=== PATIENT | male | born 1980 | race Caucasian/White ===

== ENCOUNTER 2019-10-12 12:13 | Emergency (ER) | payer MEDICARE ==
[~2019-10-12] VITALS: Ht 190.5 cm; Wt 102.1 kg
[2019-10-12] MEDS ORDERED: CRUTCH4 XX (14:41)
[2019-10-12] MEDS ORDERED: Norco 5-325 Ta1 EACH PO (14:42)
== END 2019-10-12 15:05 | disposition home or self-care (01) ==
LOC: ER 12:13
DX: S86.912A Strain of unspecified muscle(s) and tendon(s) at lower leg level, left leg, initial encounter (principal); X58.XXXA Exposure to other specified factors, initial encounter
CPT/HCPCS: 29505; 73562-LT; 99283-25; A9270-GY

== ENCOUNTER → 2021-02-20 | Outpatient (CLI) | payer MEDICARE ==
[~2021-02-20] MED LIST: CLON.3 PO; CRUTCH4 XX; LISINOPRIL-HCT1 EAC1 PO; Norco 5-325 Ta1 EACH PO; OMEP20ER PO
[2021-02-20 17:51] LABS: BASOPHILS ABSOLUTE AUTO 0.03 K/mm3 (0.00-0.23); BASOPHILS PERCENT AUTO 0 % (0-2); EOSINOPHILS ABSOLUTE AUTO 0.07 K/mm3 (0.00-0.68); EOSINOPHILS PERCENT AUTO 1 % (0-6); Hemoglobin 15.3 g/dL (13.5-17.5); IMMATURE GRAN ABSOLUTE AUTO 0.03 K/mm3 (0.00-0.10); IMMATURE GRAN PERCENT AUTO 0 % (0-1); LYMPHOCYTES ABSOLUTE AUTO 1.72 K/mm3 (0.84-5.20); LYMPHOCYTES PERCENT AUTO 15 % (21-46); MONOCYTES ABSOLUTE AUTO 1.05 K/mm3 (0.16-1.47); MONOCYTES PERCENT AUTO 9 % (4-13); Mean Corpuscular HGB 28.5 pg (26.0-34.0); Mean Corpuscular HGB Conc 32.6 g/dL (31.5-36.5); Mean Corpuscular Volume 88 fL (80-100); Mean Platelet Volume 10.5 fL (9.1-12.4); NEUTROPHILS ABSOLUTE AUTO 8.26 K/mm3 (1.96-9.15); NEUTROPHILS PERCENT AUTO 74 % (41-73); Platelet Count 332 K/mm3 (150-400); RDW Coefficient Variation 14.6 % (11.7-14.2); Red Blood Cell Count 5.36 M/mm3 (4.30-5.90); White Blood Cell Count 11.16 K/mm3 (4.00-11.30)
[2021-02-20 18:11] LABS: Bilirubin, Total 0.7 mg/dL (0.1-1.0); Bun/Creatinine Ratio 14.3 (12.0-20.0); Calcium, Blood 12.4 mg/dL (8.5-10.1); Creatinine, Blood 1.82 mg/dL (0.60-1.20); Globulin, Blood 4.2 g/dL (2.2-4.0); Potassium, Blood 3.5 mmol/L (3.5-5.5); Total Protein, Blood 8.2 g/dL (6.4-8.2)
== END | disposition home or self-care (01) ==
LOC: LAB 16:55 → LAB SHORT 16:55
PROVIDERS: Physician Assistant
DX: R10.9 Unspecified abdominal pain (principal)
CPT/HCPCS: 80053; 85025

== ENCOUNTER 2021-07-12 20:46 | Inpatient (IN) | payer MEDICARE ==
[~2021-07-12] VITALS: Ht 190.5 cm; Wt 112.4 kg
[2021-07-12] MEDS ORDERED: SILDENAFIL CITR20 MG PO (21:44)
[2021-07-12] MEDS ORDERED: Cymbalta20 MG PO (21:44)
[2021-07-12 21:58] LABS: BASOPHILS ABSOLUTE AUTO 0.03 K/mm3 (0.00-0.23); BASOPHILS PERCENT AUTO 0 % (0-2); EOSINOPHILS PERCENT AUTO 0 % (0-6); Hematocrit 45.4 % (37.0-53.0); Hemoglobin 15.4 g/dL (13.5-17.5); IMMATURE GRAN ABSOLUTE AUTO 0.17 K/mm3 (0.00-0.10); IMMATURE GRAN PERCENT AUTO 1 % (0-1); LYMPHOCYTES ABSOLUTE AUTO 1.09 K/mm3 (0.84-5.20); LYMPHOCYTES PERCENT AUTO 6 % (21-46); MONOCYTES ABSOLUTE AUTO 1.42 K/mm3 (0.16-1.47); MONOCYTES PERCENT AUTO 8 % (4-13); Mean Corpuscular HGB 29.3 pg (26.0-34.0); Mean Corpuscular HGB Conc 33.9 g/dL (31.5-36.5); Mean Corpuscular Volume 87 fL (80-100); Mean Platelet Volume 10.5 fL (9.1-12.4); NEUTROPHILS ABSOLUTE AUTO 15.24 K/mm3 (1.96-9.15); NEUTROPHILS PERCENT AUTO 85 % (41-73); Platelet Count 321 K/mm3 (150-400); RDW Coefficient Variation 13.8 % (11.7-14.2); RDW Standard Deviation 43.5 fL (35.1-46.3); Red Blood Cell Count 5.25 M/mm3 (4.30-5.90); White Blood Cell Count 17.95 K/mm3 (4.00-11.30)
[2021-07-12 22:22] LABS: Troponin I 0.074 ng/mL (0.000-0.040)
[2021-07-12 22:34] LABS: Albumin, Blood 4.1 g/dL (3.4-5.0); Bilirubin, Total 1.6 mg/dL (0.1-1.0); Bun/Creatinine Ratio 11.2 (12.0-20.0); Calcium, Blood 14.9 mg/dL (8.5-10.1); Creatinine, Blood 2.23 mg/dL (0.60-1.20); Globulin, Blood 4.2 g/dL (2.2-4.0); Potassium, Blood 3.4 mmol/L (3.5-5.5); Total Protein, Blood 8.3 g/dL (6.4-8.2)
[2021-07-12 23:46] LABS: Source, Urine Clean Catch
[2021-07-12 23:55] LABS: Bilirubin, Urine Neg (Neg); Blood, Urine 3+ (Neg); Glucose Qualitative, Urine Neg (Neg); Ketones, Urine 2+ (Neg); Leukocyte Esterase, Urine 1+ (Neg); Nitrite, Urine Neg (Neg); Protein, Urine 3+ (Neg); Urobilinogen, Urine NORM (Normal)
[2021-07-13 00:08] LABS: Appearance, Urine Hazy (Clear); Color, Urine Yellow (P-Yellow)
[2021-07-13 00:28] LABS: Amorphous Light (0-Heavy); Bacteria Few /hpf; Mucus Light (0-Heavy); Red Blood Cells, Urine 0-2 /hpf (0-2); Squamous Epithelial Cells Rare /hpf (Few)
[2021-07-13 04:39] LABS: U Amphetamine Screen Not Detected; U Barbituate Screen Not Detected; U Benzodiazapine Screen Not Detected; U Buprenorphine Screen Not Detected; U Cannabinoids Screen DETECTED; U Cocaine Screen Not Detected; U Methadone Screen Not Detected; U Methamphetamine Screen Not Detected; U Opiates Screen DETECTED; U Oxycodone Screen Not Detected; U Phencyclidine Screen Not Detected; U Propoxyphene Screen Not Detected
[2021-07-13 05:17] LABS: BASOPHILS ABSOLUTE AUTO 0.02 K/mm3 (0.00-0.23); BASOPHILS PERCENT AUTO 0 % (0-2); EOSINOPHILS ABSOLUTE AUTO 0.03 K/mm3 (0.00-0.68); EOSINOPHILS PERCENT AUTO 0 % (0-6); IMMATURE GRAN PERCENT AUTO 1 % (0-1); LYMPHOCYTES ABSOLUTE AUTO 0.43 K/mm3 (0.84-5.20); LYMPHOCYTES PERCENT AUTO 3 % (21-46); MONOCYTES ABSOLUTE AUTO 0.95 K/mm3 (0.16-1.47); MONOCYTES PERCENT AUTO 7 % (4-13); Mean Corpuscular HGB 29.7 pg (26.0-34.0); Mean Corpuscular HGB Conc 34.1 g/dL (31.5-36.5); Mean Corpuscular Volume 87 fL (80-100); NEUTROPHILS ABSOLUTE AUTO 12.98 K/mm3 (1.96-9.15); NEUTROPHILS PERCENT AUTO 90 % (41-73); RDW Standard Deviation 44.1 fL (35.1-46.3); Red Blood Cell Count 5.05 M/mm3 (4.30-5.90); White Blood Cell Count 14.51 K/mm3 (4.00-11.30)
[2021-07-13 05:36] LABS: Albumin, Blood 3.8 g/dL (3.4-5.0); Anion Gap 18 mmol/L (6-16); Blood Urea Nitrogen 27 mg/dL (8-24); Bun/Creatinine Ratio 16.8 (12.0-20.0); CO2, Blood 30 mmol/L (21-32); Chloride, Blood 86 mmol/L (98-108); Cholesterol 228 mg/dL (50-200); Creatinine, Blood 1.61 mg/dL (0.60-1.20); Glomerular Filtration Rate 48 (60-); Glucose, Blood 114 mg/dL (70-99); HDL Cholesterol 46 mg/dL (>39); LDL/HDL RATIO 3.2; Low Density Lipoprotein Chol 145 mg/dL (0-110); Phosphorus, Blood 4.7 mg/dL (2.5-4.9); Potassium, Blood 3.1 mmol/L (3.5-5.5); Sodium, Blood 134 mmol/L (136-145); Triglycerides 184 mg/dL (30-160); Troponin I <0.015 ng/mL (0.000-0.040); Very Low Density Lipoprot Chol 36 mg/dL (6-32)
[2021-07-13 05:49] LABS: Calcium, Blood 13.2 mg/dL (8.5-10.1)
[2021-07-13 05:50] LABS: Mean Platelet Volume 11.3 fL (9.1-12.4)
[2021-07-13 16:48] LABS: Source, Urine Catheter
[2021-07-13 16:57] LABS: Appearance, Urine Clear (Clear); Blood, Urine 5+ (Neg); Color, Urine Amber (P-Yellow); Glucose Qualitative, Urine 2+ (Neg); Ketones, Urine 2+ (Neg); Leukocyte Esterase, Urine 1+ (Neg); Nitrite, Urine Pos (Neg); Protein, Urine 3+ (Neg); Specific Gravity, Urine 1.025 (1.003-1.022); Urobilinogen, Urine 1+ (Normal)
--- NOTE | 2021-07-13 17:08 | NUR ---
Admit/shift note. Pt transferred from ED. Arrived in ICU, disoriented and agitated. Pt tried to leave bed, made nonsensical statements, and was intermittently somnolent throughout admission. Bancroft vest and locked wrist restraints used for pt safety and to protect IV insertion sites/lines. Pt treated with phenobarbitol IV pushes and Precedex, currently running at 0.6 mcg/kg/hr. Pt calmed after medication administration and is now resting quietly with occasional episodes of restlessness. Acevedo catheter placed. at bedside during initial admission to ICU, all pt belongings including wallet and cellphone sent home with her. See initial shift assessement for further details. Will continue to monitor.
[2021-07-13 17:10] LABS: Bilirubin, Urine 1+ (Neg)
[2021-07-13 17:14] LABS: Amorphous Light (0-Heavy); Bacteria Many /hpf; Red Blood Cells, Urine 0-2 /hpf (0-2); Squamous Epithelial Cells Rare /hpf (Few)
--- NOTE | 2021-07-13 18:45 | NUR ---
Shift summary. Pt continues in bed, sedated on precedex 1.3 mcg/kg/hr. Pt on room air, 02 sats >93%. Pt continues to have occasional episodes of agitation, restlessness/pulling at restraints. Unable to redirect pt, he is confused and disoriented. Pt has IV access in L/AC, R/forearm and R/wrist. LR running at 200 ml/hr, Precedex 1.3 mcg/kg/hr, NS 10 ml/hr. See shift assessment/note for further details. Will continue to monitor and report off to nightshift RN.
--- NOTE | 2021-07-13 20:00 | NUR ---
ASSUMED CARE OF PT AT 1915. REPORT RECEIVED AT BEDSIDE. PT PRESENTS IN BED. AWAKENS AND IS VERY DISORIENTED AND CONFUSED. PULLS AT HIS RESTRAINTS. PRECEDEX AT 1.3 MCG'S/KG/HOUR. PT GOES FROM BEING VERY SOMNULENT, TO BEING FULLY AWAKE PULLING AT RESTRAINTS VERY QUICKLY. PT'S BLOOD PRESSURE NOTED TO BE SOMEWHAT LOW. CONTINUES ON LR AT 200 ML/HR. WILL CONTINUE TO MONITOR. WILL REVIEW CHART AND PLAN OF CARE FOR THIS PT.
--- NOTE | 2021-07-13 20:00 | NUR ---
ASSUMED CARE OF PT AT 1915. REPORT RECEIVED AT BEDSIDE. PT PRESENTS IN BED. ENDOSCOPY TEAM IN ROOM PREPPING FOR ENDOSCOPY. PT DOES NOT MAKE ANY VERBAL ACKNOWLEDGEMENT. DOES OPEN EYES TO CONTACT. WILL REVIEW CHART AND PLAN OF CARE FOR THIS PT. WILL ASSIST IN ANY WAY THE SCOPE TEAM.
--- NOTE | 2021-07-14 | NUR ---
FULL BEDBATH DONE WITH ASSIST OF BACK CLOSER. PT DOES REMAIN COMPLIANT WITH INSTRUCTIONS AND DOES NOT PULL AT LINES OR BECOME AGITATED. HAVE NOTED, PT'S BLOOD PRESSURES HAVE BEEN TRENDING LOWER. WILL CALL MD WITH UPDATE AND RECOMMENDATIONS.
--- NOTE | 2021-07-14 | NUR ---
PT HAS RECEIVED TWO UNITS OF FFP, ALBUMIN, VITAMIN K WITHOUT S/S ADVERSE REACTIONS. DIGNISHIELD IN PLACE WITH SOME RED/MAROON COLORED LIQUID. DR FUNEZ HAS GIVEN ORDERS FOR INTERVENTION, AND PLAN OF CARE FOR THIS PT.
[2021-07-14 03:44] LABS: BASOPHILS ABSOLUTE AUTO 0.02 K/mm3 (0.00-0.23); BASOPHILS PERCENT AUTO 0 % (0-2); Hematocrit 34.1 % (37.0-53.0); Hemoglobin 11.4 g/dL (13.5-17.5); LYMPHOCYTES PERCENT AUTO 7 % (21-46); MONOCYTES ABSOLUTE AUTO 0.52 K/mm3 (0.16-1.47); MONOCYTES PERCENT AUTO 9 % (4-13); Mean Corpuscular HGB 29.3 pg (26.0-34.0); Mean Corpuscular HGB Conc 33.4 g/dL (31.5-36.5); Mean Corpuscular Volume 88 fL (80-100); Mean Platelet Volume 11.9 fL (9.1-12.4); Platelet Count 98 K/mm3 (150-400); RDW Coefficient Variation 13.9 % (11.7-14.2); RDW Standard Deviation 44.3 fL (35.1-46.3); Red Blood Cell Count 3.89 M/mm3 (4.30-5.90); White Blood Cell Count 6.02 K/mm3 (4.00-11.30)
[2021-07-14 04:29] LABS: Albumin, Blood 2.4 g/dL (3.4-5.0); Albumin/Globulin Ratio 0.9 (0.8-1.8); Bilirubin, Total 1.3 mg/dL (0.1-1.0); Bun/Creatinine Ratio 20.5 (12.0-20.0); Globulin, Blood 2.6 g/dL (2.2-4.0); Magnesium, Blood 0.7 mg/dL (1.6-2.4); Potassium, Blood 4.1 mmol/L (3.5-5.5)
[2021-07-14 04:39] LABS: Calcium, Blood 9.5 mg/dL (8.5-10.1)
[2021-07-14 05:38] LABS: EOSINOPHILS PERCENT AUTO 0 % (0-6); IMMATURE GRAN PERCENT AUTO 2 % (0-1); NEUTROPHILS ABSOLUTE AUTO 4.98 K/mm3 (1.96-9.15); NEUTROPHILS PERCENT AUTO 83 % (41-73)
--- NOTE | 2021-07-14 06:30 | NUR ---
PT HAS REMAINED STABLE THRU THIS NIGHT. HAS NOT REQUIRED ANY PRBC'S THIS SHIFT. DOES HAVE DRY COUGH THAT IS NONPRODUCTIVE. POOR URINARY OUTPUT. CONCENTRATED IRMA URINE. CURTIS RAMIRES COMES IN TO SEE PT THIS AM. DID PROVIDE UPDATE AND STATUS OF THIS PT. WILL CONTINUE TO MONITOR PT, AND WILL REPORT OFF TO ONCOMING RN.
--- NOTE | 2021-07-14 06:30 | NUR ---
PT RECEIVED A BOLUS OF LR AND IS NOW ON MAINTAINENCE RATE. BLOOD PRESSURES HAVE IMPROVED SOME. PT DOES MAKE ATTEMPTS AT PULLNG AT LINES ANYTIME THAT HIS RESTRAINTS OR OFF FOR REPOSITIONING, AND ROM. PT HAS BEEN DECREASED ON PRECEDEX DRIP TO 0.7 MCG'S WHICH HAS BEEN ADEQUATE TO PROVE SOME CALMING THROUGH THE WITHDRAWALS. PT HAS CLEARED SOME WITH MENTATION THOUGH DOES HAVE SOME REMAINING CONFUSION. POOR URINARY OUTPUT OF 300 ML. CONCENTRATED. CALL MADE TO DR MENDEZ CONCERNING CRITICAL LOW MAGNESIUM LEVEL. ORDERS RECEIVED. WILL CONTINUE TO MONITOR PT, AND WILL REPORT OFF TO ONCOMING RN.
--- NOTE | 2021-07-14 07:05 | NUR ---
Assumed care. Report received from nightshift RN. Pt sleeping in bed at this time, on room air. IV access in L/arm, R/forearm and R/hand. Precedex running at 0.7 mcg/kg/hr, LR running at 150 ml/hr. Acevedo catheter in place. No acute needs noted at this time, will continue to monitor.
[2021-07-14 15:34] LABS: Albumin, Blood 2.6 g/dL (3.4-5.0); Albumin/Globulin Ratio 0.7 (0.8-1.8); Bilirubin, Total 1.3 mg/dL (0.1-1.0); Bun/Creatinine Ratio 25.4 (12.0-20.0); Calcium, Blood 9.4 mg/dL (8.5-10.1); Creatinine, Blood 1.89 mg/dL (0.60-1.20); Globulin, Blood 3.7 g/dL (2.2-4.0); Potassium, Blood 3.9 mmol/L (3.5-5.5); Total Protein, Blood 6.3 g/dL (6.4-8.2)
--- NOTE | 2021-07-14 18:12 | NUR ---
Shift summary. Pt alert and oriented, able to use call light and communicate needs. Pt up to chair and bedside commode multiple times throughout shift. Able to transfer himself easily. Pt is on 2L/min 02 via NC. IV access in R/forearm and R/hand. IV pump running 150 ml/hr. Pt c/o abdominal pain and back pain throughout shift, treated with PRN pain medications. Pt increasingly tachycardic throughout shift, current HR 160s when out of bed, 140s when laying down. See shift assessment for further details, will continue to monitor and report off to nightshift RN. .
--- NOTE | 2021-07-14 19:31 | NUR ---
ASSUMED CARE OF PT AT 1915. REPORT RECEIVED AT BEDSIDE. PT PRESENTS IN BED. ALERT AND ORIENTED. PLEASANT AND COOPERATIVE WITH CARE AND ASSESSMENT. PT'S HEART RATE REMAINS AT 140'S. THIS HAS SLOWLY ELEVATED SINCE THE PRECEDEX WAS STOPPED EARLIER IN THE DAY. PT UP TO BEDSIDE COMMODE TO ATTEMPT BM. ASSIST WITH LINES NEEDED. PT WAS UNSUCCESSFUL. HAS STARTED ON MIRALAX TODAY. WILL REVIEW CHART AND PLAN OF CARE FOR THIS PT.
--- NOTE | 2021-07-15 02:03 | NUR ---
SPOKE WITH DR BARTON DURING EVENING. ORDER RECEIVED FOR MOM, AND FOR DOCUSATE SODIUM TO FACILITATE PT HAVING BM. THESE ADMINISTERED. PENDING RESULTS. PT HAS HAD FREQUENT COMPLAINTS OF BACK PAIN. HAVE MEDICATED PT WITH DILAUDID WITH SOME SUCCESS. PT HAS AMBULATED TO SHOWER AND WAS ABLE TO SHOWER HIMSELF. NEEDS STANDBY ASSIST WITH AMBULATION. WILL CONTINUE TO MONITOR PT.
--- NOTE | 2021-07-15 03:27 | NUR ---
PT HAS BEEN TRANSFERRED TO ROOM PCU 04 VIA W/C. REPORT CALLED TO ESVIN ROSARIO. REPORT GIVEN IN SBAR FASHION. ALLOWED FOR QUESTIONS. PT ACKNOWLEDGED AND ACCEPTED TRANSFER. PT LEAVES IN STABLE CONDITION AT 0315.
[2021-07-15 05:06] LABS: BASOPHILS ABSOLUTE AUTO 0.03 K/mm3 (0.00-0.23); BASOPHILS PERCENT AUTO 1 % (0-2); Hematocrit 36.1 % (37.0-53.0); Hemoglobin 11.7 g/dL (13.5-17.5); Mean Corpuscular HGB 29.4 pg (26.0-34.0); Mean Corpuscular HGB Conc 32.4 g/dL (31.5-36.5); Mean Corpuscular Volume 91 fL (80-100); Mean Platelet Volume 12.1 fL (9.1-12.4); Platelet Count 129 K/mm3 (150-400); RDW Coefficient Variation 14.4 % (11.7-14.2); RDW Standard Deviation 48.2 fL (35.1-46.3); Red Blood Cell Count 3.98 M/mm3 (4.30-5.90); White Blood Cell Count 6.02 K/mm3 (4.00-11.30)
[2021-07-15 05:29] LABS: EOSINOPHILS ABSOLUTE AUTO 0.01 K/mm3 (0.00-0.68); EOSINOPHILS PERCENT AUTO 0 % (0-6); IMMATURE GRAN ABSOLUTE AUTO 0.08 K/mm3 (0.00-0.10); IMMATURE GRAN PERCENT AUTO 1 % (0-1); LYMPHOCYTES ABSOLUTE AUTO 0.34 K/mm3 (0.84-5.20); LYMPHOCYTES PERCENT AUTO 6 % (21-46); MONOCYTES ABSOLUTE AUTO 0.71 K/mm3 (0.16-1.47); MONOCYTES PERCENT AUTO 12 % (4-13); NEUTROPHILS ABSOLUTE AUTO 4.85 K/mm3 (1.96-9.15); NEUTROPHILS PERCENT AUTO 81 % (41-73)
[2021-07-15 05:35] LABS: Albumin, Blood 2.5 g/dL (3.4-5.0); Albumin/Globulin Ratio 0.8 (0.8-1.8); Bilirubin, Total 1.2 mg/dL (0.1-1.0); Bun/Creatinine Ratio 31.4 (12.0-20.0); Calcium, Blood 8.5 mg/dL (8.5-10.1); Creatinine, Blood 1.56 mg/dL (0.60-1.20); Globulin, Blood 3.1 g/dL (2.2-4.0); Magnesium, Blood 1.6 mg/dL (1.6-2.4); Potassium, Blood 4.2 mmol/L (3.5-5.5); Total Protein, Blood 5.6 g/dL (6.4-8.2)
--- NOTE | 2021-07-15 07:28 | NUR ---
SHIFT SUMMARY TRANSFER FROM ICU. ARRIVED AT PCU THIS MORNING A+OX4. IMPULSIVE, WILL WALK ON OWN FOR ADLS. HR INCREASES WITH ACTIVITY INTO 160'S. TACHY 130/140 AT REST. ON RA SATS OVER 93%. DILADID Q2 FOR 8/10 BACK PAIN. IN BED LAYING DOWN WITH CALL ALARM AT SIDE
--- NOTE | 2021-07-15 18:30 | NUR ---
SHIFT SUMMARY PT A/O X4 AND COOPERATIVE OF CARE. PT SBP CLBMED TO 160'S, TREATED PER EMAR. OTHER VSS T/O SHIFT WITH O2 SATS > 90% ON RA. PT WAS UP IN ROOM AND AMBULATED TO TOILET, SBA; HR INCREASED TO 130'S WHEN UP IN ROOM. PT REPORTED PAIN IN BACK MULTIPLE TIMES T/O SHIFT, TREATED PER EMAR. NO REPORTS OF CHEST PAIN/PRESSURE T/O SHIFT. NO REPORT OF SOB T/O SHIFT.
[2021-07-16 04:02] LABS: Alanine Aminotransfer (ALT/SGP 150 U/L (12-78); Albumin, Blood 2.1 g/dL (3.4-5.0); Albumin/Globulin Ratio 0.5 (0.8-1.8); Alk Phos 58 U/L (50-136); Anion Gap 10 mmol/L (6-16); Aspartate Aminotrans (AST/SGOT 112 U/L (12-37); Blood Urea Nitrogen 24 mg/dL (8-24); Bun/Creatinine Ratio 25.8 (12.0-20.0); CO2, Blood 29 mmol/L (21-32); Chloride, Blood 91 mmol/L (98-108); Creatinine, Blood 0.93 mg/dL (0.60-1.20); Globulin, Blood 4.2 g/dL (2.2-4.0); Glomerular Filtration Rate >60 (60-); Glucose, Blood 171 mg/dL (70-99); Magnesium, Blood 1.6 mg/dL (1.6-2.4); Potassium, Blood 3.5 mmol/L (3.5-5.5); Sodium, Blood 130 mmol/L (136-145); Total Protein, Blood 6.3 g/dL (6.4-8.2)
--- NOTE | 2021-07-16 07:43 | NUR ---
SHIFT SUMMARY PT ALERT AND ORIENTED X4. C/O SEVERE 8-10/10 PAIN IN BACK AND STOMACH. ANXIOUS ABOUT PAIN. PROVIDER CALLED AND PT ORDERED FOR Q1 DILAUDID AND NPO. MAINTAINING SATS OVER [address], INCREASES WITH ACTIVITY. IN BED RESTING WITH CALL ALARM AT SIDE
--- NOTE | 2021-07-16 10:22 | NUR ---
TRANSFER UPDATE REPORT TO MEDICAL FLOOR NURSE GIVEN AT 1005. PT BELONGINGS IN BAGS AND TRANSFERED WITH PT. PT LEFT FLOOR VIA WHEELCHAIR AT 1025. PT AMBULATED SELF FROM BED TO WHEELCHAIR. PT OCCOMPANIED BY HELICOPTER REPAIRER STUDENT AND HELICOPTER REPAIRER.
[2021-07-16] MEDS ORDERED: GABA300 PO (17:19)
[2021-07-16] MEDS ORDERED: FOLI1 PO (17:19)
[2021-07-16] MEDS ORDERED: MIRALAX17 GM PO (17:20)
[2021-07-16] MEDS ORDERED: B-1100 M2 PO (17:20)
[2021-07-16] MEDS ORDERED: ONDA4 PO (17:20)
[2021-07-16] MEDS ORDERED: SENN187 PO (17:20)
--- NOTE | 2021-07-16 17:51 | NUR ---
1030 RECEIVED PT TO RM 329 FROM PCU 4 VIA W/C. PT IS A&O, PLEASANT AND CO-OP. ABLE TO TX SELF TO BED. PER REPORT FROM STAR RN, PT TO ER WITH C/O N/V AND EPIGASTRIC PAIN RADIATING TO BACK. PT ADMITTED FOR PANCREATITIS. HX OF ETOH ABUSE, HTN, AND ANXIETY. DIET ADVANCED TO LOW FAT, LOW FIBER AND IV DILAUDID CHANGED TO PO PAIN MEDICATION. PT REPORTING IT EFFECTIVE AND WANTING TO GO HOME. DR ALMEIDA NOTIFIED. PT TO WAIT A COUPLE OF HOURS TO MAKE SURE PAIN IS TOLERABLE. DR ALMEIDA TO AND DISCUSSED PAIN CONTROL AND DIET. PT VERBALIZED UNDERSTANDING. D/C ORDERS PLACED AND REVIEWED WITH PT. HARD SCRIPT GIVEN TO PT; COPY PLACED IN CHART. PT ASSISTED OUT VIA W/C.
== END 2021-07-16 17:44 | disposition home or self-care (01) | DRG 438 ==
LOC: ER 20:46 → ERHOLD 07-13 03:10 → ICUW 07-13 13:21 → PCU 07-15 03:24 → MEDS 07-16 10:34
PROVIDERS: Family Medicine; Physician Assistant; Student in an Organized Health Care Education/Training Program; ADMIT Internal Medicine
DX: K85.20 Alcohol induced acute pancreatitis without necrosis or infection (principal); R65.11 Systemic inflammatory response syndrome (SIRS) of non-infectious origin with acute organ dysfunction; K86.3 Pseudocyst of pancreas; N17.9 Acute kidney failure, unspecified; F10.231 Alcohol dependence with withdrawal delirium; E83.52 Hypercalcemia; E83.42 Hypomagnesemia; N28.1 Cyst of kidney, acquired; I10 Essential (primary) hypertension; F41.9 Anxiety disorder, unspecified; Z98.890 Other specified postprocedural states; Z79.899 Other long term (current) drug therapy; Z28.21 Immunization not carried out because of patient refusal
CPT/HCPCS: 36415; 51702; 71045; 74177; 76770; 80053; 80061; 80069; 81001; 82306; 82330; 82397; 82652; 82947; 83615; 83690; 83735; 83970; 84484; 85025; 87086; 93005; 93010; 96372; 96374; 96375; 96376; 99285-25; A9270; J0360; J1170; J1644; J1885; J2060; J2270; J2405; J2560; J2765; J3411; J3475; J3480; J7030; J7050; J7120; Q9967

== ENCOUNTER 2021-07-18 08:20 | Inpatient (IN) | payer MEDICARE ==
[~2021-07-18] VITALS: Ht 190.5 cm; Wt 115.6 kg
[~2021-07-18 08:20] MED LIST changes: +B-1100 M2 PO; +Cymbalta20 MG PO; +FOLI1 PO; +GABA300 PO; +MIRALAX17 GM PO; +ONDA4 PO; +SENN187 PO; +SILDENAFIL CITR20 MG PO
[2021-07-18 08:56] LABS: Hemoglobin 9.6 g/dL (13.5-17.5); Mean Corpuscular HGB 28.9 pg (26.0-34.0); Mean Corpuscular HGB Conc 33.1 g/dL (31.5-36.5); Mean Corpuscular Volume 87 fL (80-100); Mean Platelet Volume 10.2 fL (9.1-12.4); Platelet Count 213 K/mm3 (150-400); RDW Coefficient Variation 14.9 % (11.7-14.2); Red Blood Cell Count 3.32 M/mm3 (4.30-5.90); White Blood Cell Count 10.14 K/mm3 (4.00-11.30)
[2021-07-18 09:13] LABS: Alanine Aminotransfer (ALT/SGP 69 U/L (12-78); Albumin, Blood 2.1 g/dL (3.4-5.0); Albumin/Globulin Ratio 0.5 (0.8-1.8); Alk Phos 73 U/L (50-136); Anion Gap 12 mmol/L (6-16); Aspartate Aminotrans (AST/SGOT 38 U/L (12-37); Bilirubin, Total 0.7 mg/dL (0.1-1.0); Blood Urea Nitrogen 10 mg/dL (8-24); Bun/Creatinine Ratio 14.4 (12.0-20.0); CO2, Blood 29 mmol/L (21-32); Calcium, Blood 7.7 mg/dL (8.5-10.1); Chloride, Blood 92 mmol/L (98-108); Creatinine, Blood 0.69 mg/dL (0.60-1.20); Globulin, Blood 4.2 g/dL (2.2-4.0); Glomerular Filtration Rate >60 (60-); Glucose, Blood 208 mg/dL (70-99); Potassium, Blood 2.6 mmol/L (3.5-5.5); Sodium, Blood 133 mmol/L (136-145); Total Protein, Blood 6.3 g/dL (6.4-8.2)
[2021-07-18 09:25] LABS: BAND PERCENT MAN 17 % (0-8); BASOPHILS PERCENT MAN 0 % (0-2); EOSINOPHILS PERCENT MAN 0 % (0-6); LYMPHOCYTES ABSOLUTE MAN 0.81 K/mm3 (0.84-5.20); LYMPHOCYTES PERCENT MAN 8 % (21-46); METAMYELOCYTE PERCENT MAN 1 % (0-0); MONOCYTES ABSOLUTE MAN 1.72 K/mm3 (0.16-1.47); MONOCYTES PERCENT MAN 17 % (4-13); MYELOCYTE PERCENT MAN 1 % (0-0); SEG NEUTROPHILS PERCENT MAN 56 % (41-73); TOTAL CELLS COUNTED 100
[2021-07-18 11:17] LABS: Source, Urine Clean Catch
[2021-07-18 11:21] LABS: Appearance, Urine Clear (Clear); Bilirubin, Urine Neg (Neg); Blood, Urine Neg (Neg); Color, Urine Yellow (P-Yellow); Glucose Qualitative, Urine 4+ (Neg); Ketones, Urine 3+ (Neg); Leukocyte Esterase, Urine Neg (Neg); Nitrite, Urine Neg (Neg); Protein, Urine Neg (Neg); Urobilinogen, Urine NORM (Normal)
[2021-07-18] MEDS ORDERED: GABA300 PO (12:20)
[2021-07-18] MEDS ORDERED: CYMBALTA20 M1 PO (13:04)
[2021-07-18] MEDS ORDERED: FOLI1 PO (13:05)
[2021-07-18] MEDS ORDERED: B-1100 M1 PO (13:06)
[2021-07-18 13:52] LABS: Hematocrit 28.6 % (37.0-53.0); Hemoglobin 9.2 g/dL (13.5-17.5); Mean Corpuscular HGB 28.8 pg (26.0-34.0); Mean Corpuscular HGB Conc 32.2 g/dL (31.5-36.5); Mean Corpuscular Volume 89 fL (80-100); Mean Platelet Volume 10.4 fL (9.1-12.4); Platelet Count 185 K/mm3 (150-400); RDW Standard Deviation 49.3 fL (35.1-46.3); White Blood Cell Count 9.07 K/mm3 (4.00-11.30)
[2021-07-18 14:25] LABS: BAND PERCENT MAN 18 % (0-8); BASOPHILS PERCENT MAN 0 % (0-2); EOSINOPHILS PERCENT MAN 0 % (0-6); LYMPHOCYTES % ATYPICAL MANUAL 2 % (0-0); LYMPHOCYTES ABSOLUTE MAN 1.17 K/mm3 (0.84-5.20); LYMPHOCYTES PERCENT MAN 11 % (21-46); METAMYELOCYTE ABSOLUTE MAN 0.36 K/mm3 (0.00-0.00); METAMYELOCYTE PERCENT MAN 4 % (0-0); MONOCYTES ABSOLUTE MAN 0.99 K/mm3 (0.16-1.47); MONOCYTES PERCENT MAN 11 % (4-13); NEUTROPHILS ABSOLUTE MAN 6.53 K/mm3 (1.96-9.15); SEG NEUTROPHILS PERCENT MAN 54 % (41-73); TOTAL CELLS COUNTED 100
[2021-07-18 14:37] LABS: Alanine Aminotransfer (ALT/SGP 62 U/L (12-78); Albumin, Blood 2.1 g/dL (3.4-5.0); Albumin/Globulin Ratio 0.7 (0.8-1.8); Alk Phos 69 U/L (50-136); Anion Gap 10 mmol/L (6-16); Aspartate Aminotrans (AST/SGOT 32 U/L (12-37); Bilirubin, Total 0.4 mg/dL (0.1-1.0); Blood Urea Nitrogen 10 mg/dL (8-24); Bun/Creatinine Ratio 14.5 (12.0-20.0); CO2, Blood 31 mmol/L (21-32); Calcium, Blood 7.1 mg/dL (8.5-10.1); Chloride, Blood 95 mmol/L (98-108); Creatinine, Blood 0.69 mg/dL (0.60-1.20); Globulin, Blood 3.2 g/dL (2.2-4.0); Glomerular Filtration Rate >60 (60-); Glucose, Blood 164 mg/dL (70-99); Potassium, Blood 3.4 mmol/L (3.5-5.5); Sodium, Blood 136 mmol/L (136-145); Total Protein, Blood 5.3 g/dL (6.4-8.2)
--- NOTE | 2021-07-18 17:27 | NUR ---
SHIFT SUMMARY; ASSUMED CARE FROM ED IN AFTERNOON. TRANSFERS FROM ED GURNEY TO BED WITHOUT DIFFICULTY. LR INFUSING AT 200ML/HR. PAIN MEDS PER EMAR. A/A/OX4, JELLO AND PUDDING GIVEN PER DR. ALMEIDA. CONTINUES TO C/O ABD PAIN. ICE PACKS GIVEN. VSS, INDEPENDANT IN ROOM. WILL CONTINUE TO MONITOR AND TREAT UNTIL CHANGE OF SHIFT.
--- NOTE | 2021-07-19 06:19 | NUR ---
SHIFT SUMMARY PATIENT A&OX4, COMPLIANT WITH CARE, AND UP IND IN ROOM. ON RA. NSR-LOW ST ON THE MONITOR. HTN PATIENT DID NOT TAKE BP MEDS YESTERDAY AND MD ORDERED FOR AM. PAIN CONTROL ISSUES TO START SO GOT DILAUDID CHANGED TO Q2H WITH MUCH BETTER RELIEF IN ADDITION TO OXY Q6H. PAIN WORSENING AFTER DINNER AND ADVISED PATIENT TO TAKE IT SLOWER WHEN EATING. NORMAL BM'S TODAY PER PATIENT REPORT AND PASSING GAS WITHOUT ISSUE. VOIDING WELL IN BATHROOM. FLUIDS RUNNING PER ORDER. NO ACUTE CONCERNS AT THIS TIME. WILL CONTINUE TO MONITOR UNTIL REPORT GIVEN TO KIRSTEN MCALLISTER.
[2021-07-19 06:48] LABS: Mean Corpuscular HGB Conc 32.3 g/dL (31.5-36.5); Mean Corpuscular Volume 90 fL (80-100); NRBC ABSOLUTE 0.03 K/mm3 (0.00-0.02); NRBC Auto 0.2 /100 WBC (0.0-0.2); Platelet Count 250 K/mm3 (150-400); RDW Coefficient Variation 15.1 % (11.7-14.2); RDW Standard Deviation 49.3 fL (35.1-46.3); Red Blood Cell Count 3.45 M/mm3 (4.30-5.90); White Blood Cell Count 12.87 K/mm3 (4.00-11.30)
[2021-07-19 07:08] LABS: Anion Gap 12 mmol/L (6-16); Blood Urea Nitrogen 9 mg/dL (8-24); Bun/Creatinine Ratio 13.5 (12.0-20.0); CO2, Blood 28 mmol/L (21-32); Calcium, Blood 7.3 mg/dL (8.5-10.1); Chloride, Blood 97 mmol/L (98-108); Creatinine, Blood 0.67 mg/dL (0.60-1.20); Glomerular Filtration Rate >60 (60-); Glucose, Blood 171 mg/dL (70-99); Magnesium, Blood 1.4 mg/dL (1.6-2.4); Phosphorus, Blood 1.5 mg/dL (2.5-4.9); Potassium, Blood 3.1 mmol/L (3.5-5.5); Sodium, Blood 137 mmol/L (136-145)
[2021-07-19 07:47] LABS: BAND PERCENT MAN 8 % (0-8); BASOPHILS PERCENT MAN 0 % (0-2); EOSINOPHILS ABSOLUTE MAN 0.12 K/mm3 (0.00-0.68); EOSINOPHILS PERCENT MAN 1 % (0-6); LYMPHOCYTES PERCENT MAN 7 % (21-46); METAMYELOCYTE ABSOLUTE MAN 0.25 K/mm3 (0.00-0.00); METAMYELOCYTE PERCENT MAN 2 % (0-0); MONOCYTES ABSOLUTE MAN 1.28 K/mm3 (0.16-1.47); MONOCYTES PERCENT MAN 10 % (4-13); MYELOCYTE ABSOLUTE MAN 0.64 K/mm3 (0.00-0.00); MYELOCYTE PERCENT MAN 5 % (0-0); NEUTROPHILS ABSOLUTE MAN 9.65 K/mm3 (1.96-9.15); SEG NEUTROPHILS PERCENT MAN 67 % (41-73); TOTAL CELLS COUNTED 100
[2021-07-19 14:32] LABS: Anion Gap 9 mmol/L (6-16); Blood Urea Nitrogen 9 mg/dL (8-24); Bun/Creatinine Ratio 12.7 (12.0-20.0); CO2, Blood 31 mmol/L (21-32); Calcium, Blood 7.5 mg/dL (8.5-10.1); Chloride, Blood 95 mmol/L (98-108); Creatinine, Blood 0.71 mg/dL (0.60-1.20); Glomerular Filtration Rate >60 (60-); Glucose, Blood 178 mg/dL (70-99); Magnesium, Blood 1.5 mg/dL (1.6-2.4); Phosphorus, Blood 1.9 mg/dL (2.5-4.9); Potassium, Blood 3.1 mmol/L (3.5-5.5); Sodium, Blood 135 mmol/L (136-145)
--- NOTE | 2021-07-19 15:00 | NUR ---
Spiritual care visit conducted. Patient is sitting up in bed and alert. Patient welcomes spiritual care and explains his medical history and current issues. Patient shares about his six children, his career history and his belief in God. Patient pushes chantell for RN because of increased pain and his pain resulted in a short visit. I provide therapeutic listening and prayer. Patient responds well and voices appreciation for the visit.
--- NOTE | 2021-07-19 18:51 | NUR ---
PATIENT WITH NECROTIZING PANCREATITIS. PAIN IS PATIENTS MAIN CONCERN. HAS BEEN SWITCHED TO DILAUDED SILK SCREEN PRINTER HELPER TOLERATING WELL, AND SON VISITED. DENIES CHEST PAIN, HAS INCREASED HEART RATE WITH MOVEMENT AND EXTREME PAIN, HAS BEEN HYPERTENSIVE AT TIMES. BELLY PAIN ON THE LOWER QUADRANTS RADIATING TOWARDS BACK AND INTO THE GROIN AT TIMES, ICE PACKS HELPING WHEN NOT DUE FOR EMR MEDS. USES THE CALL LIGHT APPROPRIATELY, INDEPENDENT IN THE ROOM.
[2021-07-20 04:33] LABS: Hematocrit 29.7 % (37.0-53.0); Hemoglobin 9.8 g/dL (13.5-17.5); Mean Corpuscular HGB 29.3 pg (26.0-34.0); Mean Corpuscular Volume 89 fL (80-100); Mean Platelet Volume 9.6 fL (9.1-12.4); NRBC ABSOLUTE 0.02 K/mm3 (0.00-0.02); NRBC Auto 0.1 /100 WBC (0.0-0.2); Platelet Count 342 K/mm3 (150-400); RDW Coefficient Variation 15.4 % (11.7-14.2); RDW Standard Deviation 49.5 fL (35.1-46.3); Red Blood Cell Count 3.34 M/mm3 (4.30-5.90); White Blood Cell Count 17.83 K/mm3 (4.00-11.30)
[2021-07-20 05:25] LABS: Anion Gap 12 mmol/L (6-16); Blood Urea Nitrogen 9 mg/dL (8-24); Bun/Creatinine Ratio 14.4 (12.0-20.0); CO2, Blood 27 mmol/L (21-32); Calcium, Blood 7.3 mg/dL (8.5-10.1); Chloride, Blood 97 mmol/L (98-108); Creatinine, Blood 0.63 mg/dL (0.60-1.20); Glomerular Filtration Rate >60 (60-); Glucose, Blood 145 mg/dL (70-99); Magnesium, Blood 1.5 mg/dL (1.6-2.4); Phosphorus, Blood 2.4 mg/dL (2.5-4.9); Potassium, Blood 3.3 mmol/L (3.5-5.5); Sodium, Blood 136 mmol/L (136-145)
[2021-07-20 06:28] LABS: BAND PERCENT MAN 14 % (0-8); BASOPHILS ABSOLUTE MAN 0.17 K/mm3 (0.00-0.23); BASOPHILS PERCENT MAN 1 % (0-2); EOSINOPHILS PERCENT MAN 0 % (0-6); LYMPHOCYTES ABSOLUTE MAN 1.42 K/mm3 (0.84-5.20); LYMPHOCYTES PERCENT MAN 8 % (21-46); METAMYELOCYTE ABSOLUTE MAN 0.17 K/mm3 (0.00-0.00); METAMYELOCYTE PERCENT MAN 1 % (0-0); MONOCYTES PERCENT MAN 9 % (4-13); MYELOCYTE ABSOLUTE MAN 0.35 K/mm3 (0.00-0.00); MYELOCYTE PERCENT MAN 2 % (0-0); NEUTROPHILS ABSOLUTE MAN 14.08 K/mm3 (1.96-9.15); SEG NEUTROPHILS PERCENT MAN 65 % (41-73); TOTAL CELLS COUNTED 100
--- NOTE | 2021-07-20 06:38 | NUR ---
SHIFT SUMMARY PATIENT A&OX4, COMPLIANT WITH CARE, AND UP IND IN ROOM. ON RA. ST IN THE LOW 100'S ON THE MONITOR AND UP TO HIGH 120'S WITH AMBULATION. CIWA 0. BP IMPROVED FROM YESTERDAY. PAIN CONTROL MUCH IMPROVED WITH KINDER TEACHER PUMP IN PLACE AND KEPT AT TOLERABLE LEVEL OF 7/10 MOST OF SHIFT. TOLERATING DIET WITHOUT ISSUE AND CONTINUEING TO REMIND PATIENT TO TAKE IT SLOW WITH ANY INTAKE TO EASE SYMPTOMS. NORMAL BOWEL FUNCTION PER PATIENT REPORT. VOIDING WELL IN BATHROOM. FREQUENTLY FOUND UP AND WALKING IN ROOM. NO ACUTE CONCERNS AT THIS TIME. WILL CONTINUE TO MONITOR UNTIL REPORT GIVEN TO DAYSHIFT RN.
[2021-07-20 14:42] LABS: Anion Gap 10 mmol/L (6-16); Blood Urea Nitrogen 11 mg/dL (8-24); Bun/Creatinine Ratio 17.5 (12.0-20.0); CO2, Blood 29 mmol/L (21-32); Calcium, Blood 7.9 mg/dL (8.5-10.1); Chloride, Blood 98 mmol/L (98-108); Creatinine, Blood 0.63 mg/dL (0.60-1.20); Glomerular Filtration Rate >60 (60-); Glucose, Blood 172 mg/dL (70-99); Magnesium, Blood 1.7 mg/dL (1.6-2.4); Phosphorus, Blood 2.5 mg/dL (2.5-4.9); Potassium, Blood 3.2 mmol/L (3.5-5.5); Sodium, Blood 137 mmol/L (136-145)
--- NOTE | 2021-07-20 17:39 | NUR ---
Pt is a&o x4, pleasant with cares. PROTECTION ANALYST pump has been adequate throughout the day. No additional prn meds needed today. Tele d/c per orders. VSS on RA, bp was elevated, but did not hit prn parameters. Mg replaced in AM as well as K.
--- NOTE | 2021-07-20 19:18 | NUR ---
SHIFT TOTAL ON PCU PUMP 21.5
--- NOTE | 2021-07-21 05:04 | NUR ---
A/OX4. PCU TX. INDEPENDENT IN ROOM. FREEZER PERSON PUMP: FREEZER PERSON DOSE: 04.MG, LOCKOUT INTERVAL: 30 MIN, 4 HOUR LIMIT: 6MG, CONTINOUS RATE: 1mg/hr. PO 2MG DILAUDID FOR SEVERE PAIN - HASN'T NEEDED UP ON FLOOR. LR @ 100.
[2021-07-21 07:29] LABS: BASOPHILS ABSOLUTE AUTO 0.08 K/mm3 (0.00-0.23); BASOPHILS PERCENT AUTO 0 % (0-2); EOSINOPHILS ABSOLUTE AUTO 0.05 K/mm3 (0.00-0.68); EOSINOPHILS PERCENT AUTO 0 % (0-6); Hematocrit 31.2 % (37.0-53.0); IMMATURE GRAN ABSOLUTE AUTO 0.87 K/mm3 (0.00-0.10); IMMATURE GRAN PERCENT AUTO 4 % (0-1); LYMPHOCYTES ABSOLUTE AUTO 1.12 K/mm3 (0.84-5.20); LYMPHOCYTES PERCENT AUTO 5 % (21-46); MONOCYTES ABSOLUTE AUTO 1.44 K/mm3 (0.16-1.47); MONOCYTES PERCENT AUTO 6 % (4-13); Mean Corpuscular HGB 29.2 pg (26.0-34.0); Mean Corpuscular HGB Conc 32.1 g/dL (31.5-36.5); Mean Corpuscular Volume 91 fL (80-100); Mean Platelet Volume 9.3 fL (9.1-12.4); NEUTROPHILS ABSOLUTE AUTO 20.94 K/mm3 (1.96-9.15); NEUTROPHILS PERCENT AUTO 85 % (41-73); Platelet Count 412 K/mm3 (150-400); RDW Coefficient Variation 15.7 % (11.7-14.2); RDW Standard Deviation 51.3 fL (35.1-46.3); Red Blood Cell Count 3.43 M/mm3 (4.30-5.90)
[2021-07-21 07:57] LABS: Anion Gap 11 mmol/L (6-16); Blood Urea Nitrogen 10 mg/dL (8-24); Bun/Creatinine Ratio 15.7 (12.0-20.0); CO2, Blood 28 mmol/L (21-32); Calcium, Blood 7.9 mg/dL (8.5-10.1); Chloride, Blood 98 mmol/L (98-108); Creatinine, Blood 0.64 mg/dL (0.60-1.20); Glomerular Filtration Rate >60 (60-); Glucose, Blood 141 mg/dL (70-99); Magnesium, Blood 1.4 mg/dL (1.6-2.4); Phosphorus, Blood 2.7 mg/dL (2.5-4.9); Potassium, Blood 3.7 mmol/L (3.5-5.5); Sodium, Blood 137 mmol/L (136-145)
[2021-07-21 11:55] LABS: Influenza A, PCR NEGATIVE (NEGATIVE); Influenza B, PCR NEGATIVE (NEGATIVE); Resp Syncytial Virus, PCR NEGATIVE (NEGATIVE); SARS-Cov-2 (COVID-19) PCR, MMC NEGATIVE (NEGATIVE)
--- NOTE | 2021-07-21 16:57 | NUR ---
SHIFT SUMMARY PATIENT IS ALERT AND ORIENTED X4. PATIENT HAS BEEN PLEASENT AND COOPERATIVE WITH CARE. PATIENT HAS A SHRUB PLANTER PUMP ALONG WITH SCHEDULED PO PAIN MEDICATIONS OF WHICH HAS MANAGED PATIENTS PAIN. PATIENT HAS LR RUNNING AT 100ML/HR. PATIENT IS IND IN ROOM. PATIENT HAS AMBULATED IN HALLWAYS FOR 15-20 MIN WITHOUT INCIDENT, SEEMS TO HELP PAIN. WILL MONITOR UNTIL SHIFT CHANGE.
[2021-07-22 05:16] LABS: BASOPHILS ABSOLUTE AUTO 0.09 K/mm3 (0.00-0.23); BASOPHILS PERCENT AUTO 1 % (0-2); EOSINOPHILS ABSOLUTE AUTO 0.04 K/mm3 (0.00-0.68); EOSINOPHILS PERCENT AUTO 0 % (0-6); Hematocrit 28.9 % (37.0-53.0); Hemoglobin 9.4 g/dL (13.5-17.5); IMMATURE GRAN ABSOLUTE AUTO 0.38 K/mm3 (0.00-0.10); IMMATURE GRAN PERCENT AUTO 2 % (0-1); LYMPHOCYTES ABSOLUTE AUTO 0.96 K/mm3 (0.84-5.20); LYMPHOCYTES PERCENT AUTO 5 % (21-46); MONOCYTES ABSOLUTE AUTO 1.18 K/mm3 (0.16-1.47); MONOCYTES PERCENT AUTO 6 % (4-13); Mean Corpuscular HGB 29.3 pg (26.0-34.0); Mean Corpuscular HGB Conc 32.5 g/dL (31.5-36.5); Mean Corpuscular Volume 90 fL (80-100); Mean Platelet Volume 9.5 fL (9.1-12.4); NEUTROPHILS PERCENT AUTO 87 % (41-73); Platelet Count 454 K/mm3 (150-400); RDW Coefficient Variation 15.4 % (11.7-14.2); RDW Standard Deviation 51.5 fL (35.1-46.3); Red Blood Cell Count 3.21 M/mm3 (4.30-5.90); White Blood Cell Count 19.95 K/mm3 (4.00-11.30)
--- NOTE | 2021-07-22 05:23 | NUR ---
PT IS A/OX4. ALTHOUGH THE PT CAN WALK IN THE ROOM/HALLWAY HE STATES HIS PAIN IS STILL NOT MANAGED. HE IS CURRENTLY ON A SHOE TURNER AND HAS ORAL DILAUDID WELL. MERRUM WAS ADDED TO HIS IV MEDS AND HE IS CURRENTLY ON LR @ 100 ALL INTO HIS DOUBLE LUMEN POWERGLIDE.
[2021-07-22 06:05] LABS: Anion Gap 11 mmol/L (6-16); Blood Urea Nitrogen 8 mg/dL (8-24); Bun/Creatinine Ratio 13.4 (12.0-20.0); CO2, Blood 27 mmol/L (21-32); Calcium, Blood 7.8 mg/dL (8.5-10.1); Chloride, Blood 99 mmol/L (98-108); Glomerular Filtration Rate >60 (60-); Glucose, Blood 110 mg/dL (70-99); Magnesium, Blood 1.3 mg/dL (1.6-2.4); Phosphorus, Blood 2.7 mg/dL (2.5-4.9); Potassium, Blood 3.6 mmol/L (3.5-5.5); Sodium, Blood 137 mmol/L (136-145)
--- NOTE | 2021-07-22 18:16 | NUR ---
SHIFT SUMMARY; PATIENT REMAINS ON CHANGE MANAGEMENT EXPERT PUMP. HAS DILAUDID 2MG ORDERED Q2 HOURS PRN PAIN. PATIENT AMBULATES IN HALLWAY AND DURING DAY. NADN. VITAL SIGNS WNL. PATIENT SAYS HIS PAIN NEVER GOES BELOW 5 OR 6. HE REFUSED SHOWER TODAY "I HAD ONE YESTERDAY" ANGELT EATS WELL DURING DAY. HE IS DRINKING WATER AND JUICE DURING DAY. BILATERAL LOWER LIMBS SHOW 2+EDEMA AND ARE PAINFULL TO TOUCH. HIS PAIN IS IN LOWER BACK L1-L3 AREA. PATIENT WINCES WHEN HE GETS UP AND WHEN SITTING DOWN. HE REFUSES LACTATED RINGERS THAT ARE ORDERED 2 BAGS 100ML/HR IS NOTIFIED AND ALSO MESSAGE LEFT FOR DR.FISHER NANCY HUBER RN
[2021-07-23 05:24] LABS: BASOPHILS ABSOLUTE AUTO 0.05 K/mm3 (0.00-0.23); BASOPHILS PERCENT AUTO 0 % (0-2); EOSINOPHILS ABSOLUTE AUTO 0.09 K/mm3 (0.00-0.68); EOSINOPHILS PERCENT AUTO 1 % (0-6); Hematocrit 32.1 % (37.0-53.0); Hemoglobin 10.2 g/dL (13.5-17.5); IMMATURE GRAN ABSOLUTE AUTO 0.26 K/mm3 (0.00-0.10); IMMATURE GRAN PERCENT AUTO 2 % (0-1); LYMPHOCYTES ABSOLUTE AUTO 1.18 K/mm3 (0.84-5.20); LYMPHOCYTES PERCENT AUTO 7 % (21-46); MONOCYTES ABSOLUTE AUTO 1.23 K/mm3 (0.16-1.47); MONOCYTES PERCENT AUTO 8 % (4-13); Mean Corpuscular HGB Conc 31.8 g/dL (31.5-36.5); Mean Corpuscular Volume 91 fL (80-100); Mean Platelet Volume 9.5 fL (9.1-12.4); NEUTROPHILS ABSOLUTE AUTO 13.45 K/mm3 (1.96-9.15); NEUTROPHILS PERCENT AUTO 83 % (41-73); Platelet Count 608 K/mm3 (150-400); RDW Coefficient Variation 15.6 % (11.7-14.2); RDW Standard Deviation 51.8 fL (35.1-46.3); Red Blood Cell Count 3.52 M/mm3 (4.30-5.90); White Blood Cell Count 16.26 K/mm3 (4.00-11.30)
--- NOTE | 2021-07-23 05:29 | NUR ---
SHIFT SUMMARY PT HAS SLEPT ON AND OFF T/O THE NIGHT. HE IS STILL ON CLAIMS ATTORNEY, AND IS REQUESTING FREQUENT PRN'S FOR BREAKTHROUGH PAIN, PT MEDICATED PER EMAR. HE IS TOLERATING CURRENT PAIN REGIMEN WITHOUT SOMNOLENCE. PT RATES PAIN ABOUT 7 (0-10) ON AVERAGE. PT REPORTS PAIN IN RIGHT FLANK, BACK AND GROIN. PT AMBULATES INDEPENDENTLY IN ROOM AND THE HALLWAY. VITALS ARE STABLE. NO ACUTE CHANGES TO REPORT OVERNIGHT. BED IN LOWEST POSITION, CALL LIGHT WITHIN REACH.
[2021-07-23 06:39] LABS: Anion Gap 12 mmol/L (6-16); Blood Urea Nitrogen 8 mg/dL (8-24); Bun/Creatinine Ratio 11.9 (12.0-20.0); CO2, Blood 28 mmol/L (21-32); Calcium, Blood 8.3 mg/dL (8.5-10.1); Chloride, Blood 98 mmol/L (98-108); Creatinine, Blood 0.68 mg/dL (0.60-1.20); Glomerular Filtration Rate >60 (60-); Glucose, Blood 134 mg/dL (70-99); Magnesium, Blood 1.5 mg/dL (1.6-2.4); Potassium, Blood 4.1 mmol/L (3.5-5.5); Sodium, Blood 138 mmol/L (136-145)
--- NOTE | 2021-07-23 18:06 | NUR ---
SHIFT SUMMARY; PATIENT HAD UNEVENTFUL DAY. AMBULATES IN HALLWAY FOR EXERCISE AND STATES "HE IS BORED" PATIENT ASKING FOR PAIN MEDICATION PO Q2 HOURS PIPE THREADER PUMP ORDER CHANGE. 0.75MG/HR FOR TOTAL 5MG Q4 HOURS. PATIENTS PO DILAUDID WAS CHANGED TO Q 4 HOURS NOW FROM Q2 HOURS. TORADOL WAS ALSO ADDED TO HIS EMAR. WILL REMAIN AVAILABLE FOR THIS PATIENT FOR ANY WANTS OR NEEDS UNTIL HAND OFF AT SHIFT CHANGE. NANCY HUBER RN
--- NOTE | 2021-07-24 04:50 | NUR ---
Shift Summary. Pt was admitted for necrotizing pancreatitis. Full code. Plan is to titrate need for pain meds. Pt is on a MANAGER SCIENCE at this time. PRN and scheduled pain meds also given this shift. Powerglide in upper L arm. Abx scheduled.
[2021-07-24 04:54] LABS: BASOPHILS ABSOLUTE AUTO 0.03 K/mm3 (0.00-0.23); BASOPHILS PERCENT AUTO 0 % (0-2); EOSINOPHILS ABSOLUTE AUTO 0.06 K/mm3 (0.00-0.68); EOSINOPHILS PERCENT AUTO 1 % (0-6); Hematocrit 28.9 % (37.0-53.0); Hemoglobin 9.2 g/dL (13.5-17.5); IMMATURE GRAN ABSOLUTE AUTO 0.12 K/mm3 (0.00-0.10); IMMATURE GRAN PERCENT AUTO 1 % (0-1); LYMPHOCYTES ABSOLUTE AUTO 1.02 K/mm3 (0.84-5.20); LYMPHOCYTES PERCENT AUTO 9 % (21-46); MONOCYTES ABSOLUTE AUTO 1.09 K/mm3 (0.16-1.47); MONOCYTES PERCENT AUTO 10 % (4-13); Mean Corpuscular HGB 28.8 pg (26.0-34.0); Mean Corpuscular HGB Conc 31.8 g/dL (31.5-36.5); Mean Corpuscular Volume 91 fL (80-100); Mean Platelet Volume 9.4 fL (9.1-12.4); NEUTROPHILS ABSOLUTE AUTO 8.58 K/mm3 (1.96-9.15); NEUTROPHILS PERCENT AUTO 79 % (41-73); Platelet Count 573 K/mm3 (150-400); RDW Coefficient Variation 15.5 % (11.7-14.2); Red Blood Cell Count 3.19 M/mm3 (4.30-5.90)
[2021-07-24 05:53] LABS: Alanine Aminotransfer (ALT/SGP 28 U/L (12-78); Albumin, Blood 2.1 g/dL (3.4-5.0); Albumin/Globulin Ratio 0.6 (0.8-1.8); Alk Phos 70 U/L (50-136); Anion Gap 8 mmol/L (6-16); Aspartate Aminotrans (AST/SGOT 33 U/L (12-37); Bilirubin, Total 0.4 mg/dL (0.1-1.0); Blood Urea Nitrogen 5 mg/dL (8-24); CO2, Blood 29 mmol/L (21-32); Calcium, Blood 8.3 mg/dL (8.5-10.1); Chloride, Blood 103 mmol/L (98-108); Creatinine, Blood 0.63 mg/dL (0.60-1.20); Globulin, Blood 3.6 g/dL (2.2-4.0); Glomerular Filtration Rate >60 (60-); Glucose, Blood 139 mg/dL (70-99); Magnesium, Blood 1.7 mg/dL (1.6-2.4); Phosphorus, Blood 3.4 mg/dL (2.5-4.9); Potassium, Blood 4.4 mmol/L (3.5-5.5); Sodium, Blood 140 mmol/L (136-145); Total Protein, Blood 5.7 g/dL (6.4-8.2)
--- NOTE | 2021-07-24 17:34 | NUR ---
SHIFT SUMMARY: NO ACUTE EVENTS. PAIN LEVEL REMAINS 7/10, EVEN WITH ADDITION OF OXYCONTIN. PATIENT HAS BEEN PLEASANT AND COOPERATIVE. INDEPENDENT IN ROOM. HAD SMALL BM THIS MORNING, IS TAKING BOWEL MEDS. APPETITE IS OK.
--- NOTE | 2021-07-25 04:42 | NUR ---
SHIFT SUMMARY ADMITTED FOR NECROTIZING PANCREATITIS. FULL CODE. PLAN IS TO TITRATE DOWN NARCOTIC USE. POWERGLIDE IN SAPPHIRE. BUSINESS DIRECTOR PUMP IN USE. PRN AND SCHEDULED PAIN MEDICATION GIVEN WELL. LABILE MOODS IN REGARDS TO PAIN MEDICATIONS
[2021-07-25 04:45] LABS: BASOPHILS ABSOLUTE AUTO 0.05 K/mm3 (0.00-0.23); BASOPHILS PERCENT AUTO 0 % (0-2); EOSINOPHILS ABSOLUTE AUTO 0.07 K/mm3 (0.00-0.68); EOSINOPHILS PERCENT AUTO 1 % (0-6); Hematocrit 29.9 % (37.0-53.0); Hemoglobin 9.7 g/dL (13.5-17.5); IMMATURE GRAN ABSOLUTE AUTO 0.12 K/mm3 (0.00-0.10); IMMATURE GRAN PERCENT AUTO 1 % (0-1); LYMPHOCYTES ABSOLUTE AUTO 1.25 K/mm3 (0.84-5.20); LYMPHOCYTES PERCENT AUTO 10 % (21-46); MONOCYTES ABSOLUTE AUTO 1.22 K/mm3 (0.16-1.47); MONOCYTES PERCENT AUTO 10 % (4-13); Mean Corpuscular HGB 28.9 pg (26.0-34.0); Mean Corpuscular HGB Conc 32.4 g/dL (31.5-36.5); Mean Corpuscular Volume 89 fL (80-100); Mean Platelet Volume 9.3 fL (9.1-12.4); NEUTROPHILS ABSOLUTE AUTO 9.31 K/mm3 (1.96-9.15); NEUTROPHILS PERCENT AUTO 78 % (41-73); Platelet Count 738 K/mm3 (150-400); RDW Coefficient Variation 15.6 % (11.7-14.2); RDW Standard Deviation 51.1 fL (35.1-46.3); Red Blood Cell Count 3.36 M/mm3 (4.30-5.90); White Blood Cell Count 12.02 K/mm3 (4.00-11.30)
--- NOTE | 2021-07-25 19:29 | NUR ---
SHIFT SUMMARY: DILAUDID THERAPY ADMINISTRATIVE ASSISTANT D/C'D AND PRN PAIN MEDICATION INTERVAL EXTENDED TO EVERY 6 HOURS. PAIN NOT WELL CONTROLLED THIS EVENING. C/O 9/10 BACK PAIN, DIAPHORETIC AND UNABLE TO GET COMFORTABLE, TRIED ICE PACK AND OWN MASSAGER; CALLED DR. BAXTER TO REPORT, RECEIVED TELEPHONE ORDER FOR ONE ADDITIONAL DOSE OF DILAUDID 2 MG PO WHICH WAS GIVEN BUT HAS HAD NO EFFECT YET. HAD SEVERAL BM'S TODAY. GETTING UP TO BR INDEPENDENTLY. TOLERATING PO INTAKE. IN GOOD SPIRITS WHEN PAIN IS CONTROLLED. PT NOTIFIED OF PLAN FOR POSSIBLE D/C TOMORROW.
--- NOTE | 2021-07-26 06:28 | NUR ---
PT with necratizing pancreatitis weaned from VP INFORMATICS & changed to oral pain med short & long acting plus toradol IV with helpful effect. Tolerating diet & activity.
--- NOTE | 2021-07-26 16:52 | NUR ---
PT IS A/OX4, PLEASANT AND COOPERATIVE, THE PT IS UP IND IN HIS ROOM APPEARS TO BE BREATHING EASILY ON RA AT THIS TIME. THE CONTINUES TO REPORT LOW ABD ABD LOW BACK PAIN. THE PT REPORTS THAT THE PAIN MEDICATION HAS NOT BEEN LASTING THE FULL 6HR SPAN OF TIME. DR. ALMEIDA WAS CALLED AND CAME TO THE ROOM TO TALK WITH THE PT. PT PAIN MED CHANGED TO Q4 PRN. PT SO FAR HAS NOT REPORTED ANY N/V. CALL LIGHT IN REACH, WILL CONTINUE TO MONITOR AND ASSESS FOR CHANGES
--- NOTE | 2021-07-27 03:38 | NUR ---
PT with hx of mult spine surgeries & recent umbilical hernia repair continues on IV merrum for necrotizing pancreatitis contines to recieve IV toradol Q 6 hrs scheduled oxycontin 30 mg BID & q 4 hrs 2 mg oral dilaudid. PT rates pain 8/10 with best 6/10. He had not been on narcotics at home recently per report but had been drinking. States he will not return to etoh use. 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 Hoping to go home today on oral meds to control pain.
--- NOTE | 2021-07-27 16:16 | NUR ---
Pt. was alert and watching TV. Staff came and took vitals soon after I arrived. Pt. still dealing with a fair amount of pain. Established rapport and personal connections with his family. Pt. anticipates discharge in a day or so. Pastoral prayer was offered, but kindly declined. Pt. verbalized thankfulness for the visit.
[2021-07-28] MEDS ORDERED: PERCOCET 10-321 EAC9 PO (11:34)
[2021-07-28] MEDS ORDERED: HYDHCL25 PO (11:35)
[2021-07-28] MEDS ORDERED: OXYC15ER PO (11:36)
--- NOTE | 2021-07-28 13:22 | NUR ---
PT DISCHARGED THE PT VERBALIZED UNDERSATANDING OF THE DC INSTRUCTIONS. THE PT WAS GIVEN PRESCRIPTIONS AND PRESCRIPTION WAS FAXED TO ÁNGEL HE REQUESTED. PT APPEARED TO BE BREATHING EASILY ON RA AT THE TIME OF DC. PT DECLINED WHEELCHAIR TRANSPORT AND AMBULATED TO THE DOOR TO MEET HIS . H THE PT HAD SET UP A POST HOSPITAL REVIEW AP[POINTMENT PRIOR TO DC
== END 2021-07-28 12:37 | disposition home or self-care (01) | DRG 439 ==
LOC: ER 08:20 → PCU 12:31 → MEDS 07-20 23:40
PROVIDERS: Emergency Medicine; Family Medicine; Student in an Organized Health Care Education/Training Program; ADMIT Hospitalist
DX: K85.21 Alcohol induced acute pancreatitis with uninfected necrosis (principal); J90 Pleural effusion, not elsewhere classified; K86.3 Pseudocyst of pancreas; R65.10 Systemic inflammatory response syndrome (SIRS) of non-infectious origin without acute organ dysfunction; E87.1 Hypo-osmolality and hyponatremia; Z20.822 Contact with and (suspected) exposure to COVID-19; R50.9 Fever, unspecified; E87.6 Hypokalemia; E83.39 Other disorders of phosphorus metabolism; E83.42 Hypomagnesemia; Z28.21 Immunization not carried out because of patient refusal; F10.20 Alcohol dependence, uncomplicated; F41.9 Anxiety disorder, unspecified; M54.50 Low back pain, unspecified; G89.29 Other chronic pain; I10 Essential (primary) hypertension; Z71.41 Alcohol abuse counseling and surveillance of alcoholic; D72.829 Elevated white blood cell count, unspecified; Z79.899 Other long term (current) drug therapy; Z98.890 Other specified postprocedural states
CPT/HCPCS: 0241U; 36415; 74177; 80048; 80053; 81003; 83690; 83735; 84100; 84484; 85025; 87081; 87430; 93005; 93010; 94760; 96365; 96366; 96374; 96376; 97110; 97161; 99285-25; A9270; C1751; G0480; J0360; J1170; J1650; J1885; J2060; J2185; J3475; J3480; J7050; J7120; Q9967